=== PATIENT | male | born 1955 | race Caucasian/White ===

== ENCOUNTER 2016-10-30 05:45 | Observation (INO) | payer OTHER ==
--- NOTE | 2016-10-29 17:06 | GHP ---
[f rep st] PREOP HISTORY AND PHYSICAL ADMISSION DIAGNOSES: Benign prostatic hypertrophy with urinary obstruction and detrusor over-reactivity with high pressure voiding. HISTORY OF PRESENT ILLNESS: This is a 61-year-old gentleman who had longstanding BPH with urinary obstruction. The urodynamics and cystoscopy results and ultrasound have all been discussed with him. Written and verbal consent is obtained, and he is admitted for a TURP. Postoperative complications of bleeding, infection, and urge incontinence have been discussed. He has had a second opinion with Urology at [facility] to discuss the above issues. He is aware that he may need anticholinergics of some type for bladder assistance in controlling postop. We have discussed options of TURP versus PVP. He has had a truss and 4K studies in the past and I have reviewed the ultrasound. He is admitted for the above procedure. PAST MEDICAL HISTORY: He has had prostatic calculi, chronic prostatitis, nocturia, BPH with obstruction. PAST SURGICAL HISTORY: Ankle, shoulder and wrists. MEDICATIONS: Acyclovir. ALLERGIES: None. FAMILY HISTORY: Noncontributory. 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 REVIEW OF SYSTEMS: Negative cardiac, respiratory, GI, and endocrine. PHYSICAL EXAM: VITAL SIGNS: Stable. CHEST: Clear. HEART: Regular rate and rhythm. ABDOMEN: Normal, no organomegaly, rebound or guarding. EXTREMITIES: Lower extremities are normal. PROSTATE: Is noted some subtle nodularity and consistent firmness of the prostate. LABORATORY: He has had PSA values with most recent in August of 2016 to 2.57. In November of 2015 it was 2.64. PLAN: He is admitted for the above procedure. /[id number]/MODL MTDD
[2016-10-30] MEDS ORDERED: LIDOCAINE 1% 5 ML SDV ONE (06:25)
[2016-10-30] MEDS ORDERED: ceFAZolin 2 GM/DEXTROSE 100 ML IV ONE (06:30)
[2016-10-30] MEDS ORDERED: fentaNYL 100 MCG/2 ML INJ ONE ×2 (07:00→07:51)
[2016-10-30] MEDS ORDERED: PROPOFOL 200 MG/20 ML VIAL ONE ×2 (07:00→07:57)
[2016-10-30] MEDS ORDERED: MIDAZOLAM 2 MG/2 ML VIAL ONE (07:06)
[2016-10-30] MEDS ORDERED: LIDOCAINE 2% JELLY 20 ML (UROJECT) ONE (07:14)
[2016-10-30] MEDS ORDERED: ROCURONIUM 50 MG/5 ML VIAL ONE (07:16)
[2016-10-30] MEDS ORDERED: LIDOCAINE 2% 5 ML SDV ONE (07:16)
[2016-10-30] MEDS ORDERED: LR 1,000 ML IV ONE (07:18)
[2016-10-30] MEDS ORDERED: LIDOCAINE 1% 5 ML SDV ID PRN (07:18)
[2016-10-30] MEDS ORDERED: DEXAMETHASONE 4 MG/ML VIAL ONE (07:38)
[2016-10-30] MEDS ORDERED: SUGAMMADEX SODIUM 200 MG/2 ML VIAL IVP ONE (07:50)
[2016-10-30] MEDS ORDERED: ONDANSETRON 4 MG/2 ML VIAL ONE (07:50)
[2016-10-30] MEDS ORDERED: OPIUM/BELLADONNA ALKALO SUPP PR PRN (09:00)
[2016-10-30] MEDS ORDERED: Herbals/Supplements -Info Only PO SCH (09:00)
[2016-10-30] MEDS ORDERED: HYDROCODONE/APAP 5/325 TAB PO PRN (09:00)
[2016-10-30] MEDS ORDERED: ZOLPIDEM TARTRATE 5 MG TAB PO PRN (09:02)
--- NOTE | 2016-10-30 09:04 | POSTOPPROG ---
Post Op Note Date of Operation: 10/30/16 Surgeon: Luc Torres Anesthesia: LMA Pre-op Diagnosis: bph Post-op Diagnosis: bph Indication: bph + obst Procedure: TURP Findings: bph Inf/Abcess present in the surg proc area at time of surgery?: No EBL: Minimal Drains: Other (gray) Specimen(s): sent--dictated op note
--- NOTE | 2016-10-30 09:24 | GOP ---
[f rep st] OPERATIVE REPORT DATE OF OPERATION: 10/30/2016 SURGEON: Luc Torres MD PREOPERATIVE DIAGNOSIS: Benign prostatic hyperplasia with ureter obstruction/retention and detrusor instability. POSTOPERATIVE DIAGNOSIS: Benign prostatic hyperplasia with ureter obstruction/retention and detrusor instability. PROCEDURE PERFORMED: Transurethral excision of the prostate. FINDINGS: DESCRIPTION OF PROCEDURE: The gentleman underwent general anesthesia. Prepped and draped in normal sterile fashion in dorsal lithotomy position. After appropriate time-out, the cystoscope was passed. He did have a tight sphincteric urethra that was dilated, and then I could accommodate the 25-Frenc h resectoscope sheath. Visualization revealed no tumor, stones, foreign bodies or diverticula of the bladder, and he had an intravesical lobe of the bladder and +3 trabeculation. Then, at that point, the TUR was begun, taking down the intravesical lobe, then the right lateral lobe and a right portion of the posterior lobe, the left lateral lobe and left portion of the posterior lobe resected. I did leave the anterior part of the prostate in place because of the size of his prostate and I was zoe rned he may develop a bladder neck contracture if we did circumferential excision. So, at the end of the procedure, hemostasis was noted and that was confirmed by endoscopic utilization of the button, bipolar, and then filled his bladder with a Crede maneuver. He had good urine flow. Uro-Jet placed in the urethra. A 22 three-way catheter passed in the bladder. A 50 cc balloon inflated, traction p laced, and irrigated clear. He will be admitted for postoperative care as an observation patient. /[id number]/MODL
[2016-10-30] MEDS: MULTIVITAMINS 1 EACH TAB PO SCH (11:51)
[2016-10-30] MEDS: D5W LR 1,000 ML IV SCH ×2 (11:51→19:24)
[2016-10-31 05:23] VITALS: RESP 16
[2016-10-31 08:12] VITALS: BP 160/83; PULSE 49; TEMP 98; O2SAT 96
[2016-10-31] MEDS: MULTIVITAMINS 1 EACH TAB PO SCH (08:41)
== END 2016-10-31 14:56 | disposition home or self-care (01) ==
LOC: F3E 05:45 → F1N 10:01
PROVIDERS: ADMIT Specialist; ATTEND Specialist
PROC: 0VT04ZZ Resection of Prostate, Percutaneous Endoscopic Approach (ICD-10-PCS; principal; 2016-10-30 07:21)
DX: N40.1 Benign prostatic hyperplasia with lower urinary tract symptoms (principal); N13.8 Other obstructive and reflux uropathy; R33.9 Retention of urine, unspecified; N41.1 Chronic prostatitis
CPT/HCPCS: 52601; G0378; J0690; J1100; J2250; J2405; J2704; J3010

== ENCOUNTER 2018-05-08 | Emergency (ER) | payer OTHER | END 2018-05-08 13:11 | disposition home or self-care (01) | DX: M54.5 Low back pain (principal); Y93.C9 Activity, other involving computer technology and electronic devices; X50.0XXA Overexertion from strenuous movement or load, initial encounter; Y92.019 Unspecified place in single-family (private) house as the place of occurrence of the external cause; Y99.8 Other external cause status | CPT/HCPCS: 96374; J1170; J1885; J2405 ==